=== PATIENT | female | born 1975 | race Caucasian/White ===

== ENCOUNTER 2020-12-11 08:37 | Outpatient (CLI) | payer OTHER ==
--- NOTE | 2020-12-11 11:22 | MRI ---
LUMBAR SPINE MRI WITHOUT CONTRAST: Date: 12/11/2020 HISTORY: Chronic back pain. Pain radiating down right leg and into right knee. COMPARISON: None. FINDINGS: Appropriate T1 marrow signal intensity of the lumbar vertebra. Lumbar spine vertebral body heights ar e maintained. There is no fracture. There is no significant STIR hyperintensity to suggest ligamentou s injury or vertebral body edema. There are Type I Modic changes along the superior end plate of L4 a nd inferior end plate of L5. Conus medullaris terminates at the inferior aspect of L1. T12-L1: Adequate disc hydration. No significant central canal stenosis or significant neural foramin al narrowing. L1-L2: Adequate disc hydration. No significant central canal stenosis or significant neural foramina l narrowing. L2-L3: Adequate disc hydration. Broad based disc bulge, ligamentum flavum thickening, and facet hype rtrophy result in mild central canal stenosis. Patent bilateral neural foraminal narrowing. L3-L4: Adequate disc hydration. No significant loss of disc space height. Broad based disc bulge, li gamentum flavum thickening, and facet hypertrophy result in mild central canal stenosis. Patent bilat eral neural foramina. L4-L5: Minimal disc desiccation without significant loss of disc space height. Broad based disc bulg e, ligamentum flavum thickening, and facet hypertrophy result in mild to moderate central canal steno sis. Partial obscuration of bilateral traversing L5 nerve roots predominantly due to disc material. M ild bilateral neural foraminal narrowing due to disc material. L5-S1: Disc desiccation without significant loss of disc space height. Central disc herniation with an associated annular fissure in the right subarticular zone. Annular fissure abuts the traversing ri ght S1 nerve root. There is contact due to disc material upon bilateral traversing S1 nerve roots wit hout significant obscuration. No significant stenosis of the thecal sac. Mild to moderate bilateral n eural foraminal narrowing. IMPRESSION: Degenerative changes of the lumbar spine as above. POS: [facility]
== END 2020-12-11 08:38 | disposition home or self-care (01) ==
LOC: BICMRI 08:37
PROVIDERS: ATTEND Family Medicine
DX: M54.5 Low back pain (principal); G89.29 Other chronic pain; M51.86 Other intervertebral disc disorders, lumbar region; M24.28 Disorder of ligament, vertebrae; M48.061 Spinal stenosis, lumbar region without neurogenic claudication; M51.87 Other intervertebral disc disorders, lumbosacral region; M51.27 Other intervertebral disc displacement, lumbosacral region; M48.07 Spinal stenosis, lumbosacral region
CPT/HCPCS: 72148

== ENCOUNTER 2021-06-25 | Outpatient (CLI) | payer OTHER | END 2021-06-25 08:15 | disposition home or self-care (01) | DX: M47.22 Other spondylosis with radiculopathy, cervical region (principal) ==